=== PATIENT | male | born 1950 | race Caucasian/White ===

== ENCOUNTER 2018-01-20 12:40 | Emergency (ER) | payer MEDICARE ==
[~2018-01-20] VITALS: Ht 175.3 cm; Wt 72.5 kg
[~2018-01-20 12:40] MED LIST: HAWT500C PO; IBUP200T49 PO; LISI-170 PO; OXYC-306 PO
[2018-01-20 12:43] VITALS: BP 140/83
[2018-01-20] MEDS ORDERED: DIPH,PERTUSS(ACELL),TET VAC/PF 0.5 ML IM-VACC ONE ×2 (13:00→13:07)
[2018-01-20] MEDS ORDERED: LIDOCAINE-MPF 1%, 5ML INFIL ONE (13:00)
== END 2018-01-20 14:40 | disposition home or self-care (01) ==
LOC: ED 14:25
DX: S61.011A Laceration without foreign body of right thumb without damage to nail, initial encounter (principal); I10 Essential (primary) hypertension; Z88.0 Allergy status to penicillin; W31.2XXA Contact with powered woodworking and forming machines, initial encounter; Y93.89 Activity, other specified; Y92.009 Unspecified place in unspecified non-institutional (private) residence as the place of occurrence of the external cause; Y99.8 Other external cause status
CPT/HCPCS: 13132; 90471; 90715; 99285